=== PATIENT | female | born 1985 | race American Indian/Alaskan Native ===

== ENCOUNTER 2017-07-11 20:38 | Emergency (ER) | payer MEDICAID ==
[2017-07-11 21:33] VITALS: BP 121/85
[2017-07-11 21:49] LABS: Basophils % (Auto) 0.5 % (0.0-1.8); Eosinophils # (Auto) 0.6 K/mm3 (0.0-0.4); Eosinophils % (Auto) 6.5 % (0.0-4.3); Hematocrit 36.2 % (30.3-42.9); Hemoglobin 11.3 gm/dl (10.1-14.3); Lymphocytes # (Auto) 2.9 K/mm3 (1.2-5.4); Lymphocytes % (Auto) 31.2 % (13.4-35.0); Mean Corpuscular HGB Conc 31 % (30-34); Mean Corpuscular Volume 71 fl (79-97); Monocytes # (Auto) 0.8 K/mm3 (0.0-0.8); Monocytes % (Auto) 8.7 % (0.0-7.3); Platelet Count 287 K/mm3 (140-440); Red Cell Distribution Width 19.4 % (13.2-15.2)
[2017-07-11 21:53] LABS: Mean Corpuscular Hemoglobin 22 pg (28-32)
[2017-07-11 22:02] LABS: BUN/Creatinine Ratio 10; Blood Urea Nitrogen 10 mg/dL (7-17); Calcium 9.2 mg/dL (8.4-10.2); Hemolysis Index 0
[2017-07-11] MEDS ORDERED: ZOFRAN ODT PO ONE (22:19)
--- NOTE | 2017-07-11 22:23 | Emergency Department Report ---
ED N/V/D HPI - General Chief complaint: Nausea/Vomiting/Diarrhea Stated complaint: PREG/NAUSEA/VOMIT/CARDONA Time Seen by Provider: 07/11/17 22:17 Source: patient Mode of arrival: Stretcher Limitations: No Limitations - History of Present Illness Initial comments: 31-year-old -[place] female reports that she is complains of symptoms of nausea vomiting diarrhea and headache all day. Patient denies abdominal pain, vaginal discharge or vaginal bleeding. Patient reports her last menstrual. Was 03/10/2017. She reports that she's been one time no live births. Patient reports he has vomited 4 times today and had 5 loose stools. Patient reports that she was told that she was from [place]. She was given a urine test and a callback was made to inform her she was . MD complaint: nausea, vomiting, diarrhea -: days(s) (3) Description of Vomiting: food contents Description of Diarrhea: water Associated Abdominal Pain: No - Related Data Home Medications Medication Instructions Recorded Confirmed Last Taken Ferrous Gluconate [Fergon] 240 mg PO DAILY 06/01/13 06/01/13 Unknown Previous Rx's Medication Instructions Recorded Last Taken Type Sulfamethoxazole/Trimethoprim 1 each PO BID 3 Days tablet 08/03/13 Unknown Rx [Bactrim Ds] predniSONE [Deltasone] 50 mg PO QDAY #3 tab 08/03/13 Unknown Rx Allergies Allergy/AdvReac Type Severity Reaction Status Date / Time No Known Allergies Allergy Unverified 06/01/13 11:03 ED Review of Systems ROS: Stated complaint: PREG/NAUSEA/VOMIT/CARDONA Other details as noted in HPI Constitutional: denies: chills, fever Eyes: denies: eye pain, eye discharge, vision change ENT: denies: ear pain, throat pain Respiratory: denies: cough, shortness of breath, wheezing Cardiovascular: denies: chest pain, palpitations Endocrine: no symptoms reported Gastrointestinal: nausea, vomiting, diarrhea Genitourinary: denies: urgency, dysuria, discharge Musculoskeletal: denies: back pain, joint swelling, arthralgia Skin: denies: rash, lesions Neurological: denies: headache, weakness, paresthesias Psychiatric: denies: anxiety, depression Hematological/Lymphatic: denies: easy bleeding, easy bruising ED Past Medical Hx - Past Medical History Additional medical history: eczema, hx anemia - Surgical History Past Surgical History?: No - Social History Smoking Status: Never Smoker Substance Use Type: None - Medications Home Medications: Home Medications Medication Instructions Recorded Confirmed Last Taken Type Ferrous Gluconate [Fergon] 240 mg PO DAILY 06/01/13 06/01/13 Unknown History Sulfamethoxazole/Trimethoprim 1 each PO BID 3 Days tablet 08/03/13 Unknown Rx [Bactrim Ds] predniSONE [Deltasone] 50 mg PO QDAY #3 tab 08/03/13 Unknown Rx ED Physical Exam - General Limitations: No Limitations ED Course Vital Signs 07/11/17 21:28 Temperature 98.5 F Pulse Rate 86 Respiratory 16 Rate Blood Pressure 121/85 O2 Sat by Pulse 99 Oximetry ED Medical Decision Making - Lab Data Result diagrams: 07/11/17 21:39 07/11/17 21:39 - Medical Decision Making Patient's been evaluated by this provider fast track. Critical care attestation.: If time is entered above; I have spent that time in minutes in the direct care of this critically ill patient, excluding procedure time. ED Disposition Clinical Impression: Gastroenteritis UTI (urinary tract infection) Qualifiers: Urinary tract infection type: site unspecified Hematuria presence: with hematuria Qualified Code(s): N39.0 - Urinary tract infection, site not specified ; R31.9 - Hematuria, unspecified Disposition: Z-07 ELOPED Is pt being admited?: No Does the pt Need Aspirin: No Condition: Stable
[2017-07-11 22:26] LABS: Bacteria,Urine 1+ /HPF (Negative); Bilirubin,Urine NEG (Negative); Blood,Urine LG (Negative); Color,Urine Yellow (Yellow); Mucus,Urine FEW /HPF
[2017-07-11 22:27] LABS: RBC,Urine > 182.0 /HPF (0.0-6.0)
== END 2017-07-11 22:55 | disposition left against medical advice (07) ==
LOC: ED 20:38
DX: O23.42 Unspecified infection of urinary tract in pregnancy, second trimester (principal); O99.612 Diseases of the digestive system complicating pregnancy, second trimester; K52.9 Noninfective gastroenteritis and colitis, unspecified; Z3A.00 Weeks of gestation of pregnancy not specified
CPT/HCPCS: 36415; 80048; 81001; 82962; 84702; 85025; 99284; Q0162

== ENCOUNTER 2017-07-15 15:38 | Emergency (ER) | payer MEDICAID ==
[2017-07-15 15:48] VITALS: BP 144/94
[2017-07-15 16:59] LABS: Bacteria,Urine 1+ /HPF (Negative); Bilirubin,Urine NEG (Negative); Blood,Urine LG (Negative); Calcium Oxalate Crystals,Urine FEW; Color,Urine Yellow (Yellow); Mucus,Urine FEW /HPF; Urobilinogen,Urine < 2.0 mg/dL (<2.0)
[2017-07-15 17:00] LABS: RBC,Urine > 182.0 /HPF (0.0-6.0)
--- NOTE | 2017-07-15 19:48 | Emergency Department Report ---
ED Female HPI - General Chief complaint: Abdominal Pain Stated complaint: FLANK PAIN Time Seen by Provider: 07/15/17 19:43 Source: patient Mode of arrival: Ambulatory Limitations: No Limitations - History of Present Illness Initial comments: Patient is a 31-year-old black female who presented several days ago to the emergency department because of some right side pain as well as nausea and vomiting. Vomiting has been improved since then. The patient does continue to have some discomfort in the right flank and suprapubic area. Patient denies any dysuria or urinary frequency at this time. Patient had to leave when she presented because of time constraints but she was told that she has a UTI and she is to return for antibiotics. Patient denies any fevers chills nausea vomiting or vaginal discharge or abnormal vaginal bleeding at this time. Severity scale (0 -10): 6 Quality: aching - Related Data Home Medications Medication Instructions Recorded Confirmed Last Taken Ferrous Gluconate [Fergon] 240 mg PO DAILY 06/01/13 06/01/13 Unknown Previous Rx's Medication Instructions Recorded Last Taken Type Sulfamethoxazole/Trimethoprim 1 each PO BID 3 Days tablet 08/03/13 Unknown Rx [Bactrim Ds] predniSONE [Deltasone] 50 mg PO QDAY #3 tab 08/03/13 Unknown Rx Nitrofurantoin Monohyd/M-Cryst 100 mg PO BID #14 capsule 07/15/17 Unknown Rx [Macrobid 100 mg Capsule] Allergies Allergy/AdvReac Type Severity Reaction Status Date / Time No Known Allergies Allergy Unverified 06/01/13 11:03 ED Review of Systems ROS: Stated complaint: FLANK PAIN Other details as noted in HPI Comment: All other systems reviewed and negative ED Past Medical Hx - Past Medical History Previous Medical History?: Yes Additional medical history: eczema, hx anemia, uti - Surgical History Past Surgical History?: No - Social History Smoking Status: Current Every Day Smoker - Medications Home Medications: Home Medications Medication Instructions Recorded Confirmed Last Taken Type Ferrous Gluconate [Fergon] 240 mg PO DAILY 06/01/13 06/01/13 Unknown History Sulfamethoxazole/Trimethoprim 1 each PO BID 3 Days tablet 08/03/13 Unknown Rx [Bactrim Ds] predniSONE [Deltasone] 50 mg PO QDAY #3 tab 08/03/13 Unknown Rx Nitrofurantoin Monohyd/M-Cryst 100 mg PO BID #14 capsule 07/15/17 Unknown Rx [Macrobid 100 mg Capsule] ED Physical Exam - General Limitations: No Limitations General appearance: alert, in no apparent distress - Head Head exam: Present: atraumatic, normocephalic - Eye Eye exam: Present: normal appearance - ENT ENT exam: Present: mucous membranes moist - Neck Neck exam: Present: normal inspection - Respiratory Respiratory exam: Present: normal lung sounds bilaterally. Absent: respiratory distress - Cardiovascular Cardiovascular Exam: Present: regular rate, normal rhythm. Absent: systolic murmur, diastolic murmur, rubs, gallop - GI/Abdominal GI/Abdominal exam: Present: soft, normal bowel sounds - Extremities Exam Extremities exam: Present: normal inspection - Back Exam Back exam: Present: normal inspection - Neurological Exam Neurological exam: Present: alert, oriented X3 - Psychiatric Psychiatric exam: Present: normal affect, normal mood - Skin Skin exam: Present: warm, dry, intact, normal color. Absent: rash ED Course Vital Signs 07/15/17 15:40 Temperature 98 F Pulse Rate 86 Respiratory 16 Rate Blood Pressure 144/94 O2 Sat by Pulse 99 Oximetry ED Medical Decision Making - Lab Data Lab Results 07/15/17 Range/Units 16:33 Urine Color Yellow (Yellow) Urine Turbidity Clear (Clear) Urine pH 5.0 (5.0-7.0) Ur Specific [place] 1.023 (1.003-1.030) Urine Protein 30 mg/dl (Negative) mg/dL Urine Glucose (UA) Neg (Negative) mg/dL Urine Ketones Neg (Negative) mg/dL Urine Blood Lg (Negative) Urine Nitrite Neg (Negative) Urine Bilirubin Neg (Negative) Urine Urobilinogen < 2.0 (<2.0) mg/dL Ur Leukocyte Esterase Sm (Negative) Urine WBC (Auto) 21.0 H (0.0-6.0) /HPF Urine RBC (Auto) > 182.0 (0.0-6.0) /HPF U Epithel Cells (Auto) 1.0 (0-13.0) /HPF Urine Bacteria (Auto) 1+ (Negative) /HPF Calcium Oxalate Crystal Few Urine Mucus Few /HPF - Medical Decision Making Patient is a 31-year-old female presenting with some very mild flank pain. Patient is not in any acute distress. Patient had urinalysis that is showing that she has a UTI and she'll be placed on Macrobid and discharged home. Critical care attestation.: If time is entered above; I have spent that time in minutes in the direct care of this critically ill patient, excluding procedure time. ED Disposition Clinical Impression: UTI (urinary tract infection) Qualifiers: Urinary tract infection type: acute cystitis Hematuria presence: without hematuria Qualified Code(s): N30.00 - Acute cystitis without hematuria Disposition: TO HOME OR SELFCARE Is pt being admited?: No Does the pt Need Aspirin: No Condition: Stable Instructions: Urinary Tract Infection in Women (ED) Prescriptions: Nitrofurantoin Monohyd/M-Cryst [Macrobid 100 mg Capsule] 100 mg PO BID #14 capsule Referrals: [facility] [Outside] - 3-5 Days
== END 2017-07-15 20:47 | disposition home or self-care (01) ==
LOC: ED 15:38
DX: N30.00 Acute cystitis without hematuria (principal); F17.200 Nicotine dependence, unspecified, uncomplicated
CPT/HCPCS: 81001; 99283